=== PATIENT | male | born 1980 | race Caucasian/White ===

== ENCOUNTER 2023-05-09 19:46 | Emergency (ER) | payer BC ==
[2023-05-09] MEDS ORDERED: LIDOCAINE 1% 20 ML MDV ONE (20:15)
[2023-05-09] MEDS ORDERED: TDAP (DIPHTH,PERTUSS(ACELL),TET VAC) 0.5 ML VIAL IMVAC ONE (20:18)
--- NOTE | 2023-05-09 20:26 | ER ---
Nurse's Notes [facility] Name: Taiwo Segundo Age: 42 yrs Sex: Male : 1980 Arrival Date: 05/09/2023 Time: 19:46 Bed 12 Private MD: Diagnosis: Laceration without foreign body of left thumb without damage to nail Presentation: 05/09 20:05 Chief complaint: Patient states: cut left thumb with knife while cooking. Coronavirus cm10 screen: Vaccine status: Patient reports being unvaccinated. Client denies travel out of the [place] in the last 14 days. Ebola Screen: Patient denies travel to an Ebola-affected area in the 21 days before illness onset. No symptoms or risks identified at this time. Initial Sepsis Screen: Does the patient meet any 2 criteria? No. Patient's initial sepsis screen is negative. Does the patient have a suspected source of infection? No. Patient's initial sepsis screen is negative. Risk Assessment: Do you want to hurt yourself or someone else? Patient reports no desire to harm self or others. Onset of symptoms was May 09, 2023. 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 - Social history:: Smoking status: Patient reports the use of cigarette tobacco products, smokes 1.5 packs per day. Screenin:10 [facility] ED Fall Risk Assessment (Adult) History of falling in the last 3 months, mb9 including since admission No falls in past 3 months (0 pts) Confusion or Disorientation No (0 pts) Intoxicated or Sedated No (0 pts) Impaired Gait No (0 pts) Mobility Assist Device Used No (0 pt) Altered Elimination No (0 pt) Score/Fall Risk Level 0 - 2 = Low Risk Oriented to surroundings, Maintained a safe environment, Educated pt \T\ family on fall prevention, incl call for assistance when getting out of bed. Abuse screen: Denies threats or abuse. Nutritional screening: No deficits noted. Tuberculosis screening: No symptoms or risk factors identified. Assessment: 20:11 General: Appears in no apparent distress. Behavior is calm, cooperative. Pain: mb9 Complains of pain in left hand Pain does not radiate. Pain currently is 3 out of 10 on a pain scale. Quality of pain is described as throbbing, Pain began suddenly. Neuro: Cortes Agitation-Sedation Scale (RASS): 0 - Alert and Calm Level of Consciousness is awake, alert, obeys commands, Oriented to person, place, time, situation, Appropriate for age. Cardiovascular: Patient's skin is warm and dry. Respiratory: Airway is patent Respiratory effort is even, unlabored, Respiratory pattern is regular, symmetrical. GI: No signs and/or symptoms were reported involving the gastrointestinal system. : No signs and/or symptoms were reported regarding the genitourinary system. EENT: No signs and/or symptoms were reported regarding the EENT system. Derm: Skin is pink, warm \T\ dry. Musculoskeletal: Range of motion: intact in all extremities. Injury Description: Laceration sustained to LEFT THUMB is clean, 0.5 to 2.5 cm long, bleeding moderately, Vital Signs: 20:05 BP 141 / 88; Pulse 91; Resp 16; Pulse Ox 97% on R/A; Weight 86.18 kg; Height 5 ft. 6 cm10 in. ; 20:05 Body Mass Index 30.67 (86.18 kg, 167.64 cm) cm10 ED Course: 19:51 Patient arrived in ED. mr 19:52 Racheal Marshall FNP-C [facility]. kb 19:52 Darnell Pinto MD is Attending Physician. kb 20:03 Cristal Schulte, RN is Primary Nurse. mb9 20:03 Arm band placed on. mb9 20:06 Triage completed. cm10 20:12 Assist provider with laceration repair on left hand that was 2.5 cm. or less using mb9 sutures. Set up tray. Performed by Racheal RAMOS Dressed with 4X4s, Patient tolerated well. 20:53 Patient did not have IV access during this emergency room visit. mb9 Administered Medications: 20:08 Drug: Lidocaine Infiltration (1 %) 1 vials 5 ml Infiltration once; to bedside Volume: 5 mb9 ml; Route: Infiltration; 20:08 Drug: Tetanus-Diphtheria Toxoid IM Adult 0.5 ml IM once; Provide Vaccine Information mb9 Statement (VIS). 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 Questions and/or gaby9 concerns addressed. VIS edition date: Feb 18, 2021.; No adverse reaction Outcome: 20:26 Discharge ordered by . lawrence 20:53 Discharged to home ambulatory, mb9 20:53 Condition: stable 20:53 Discharge instructions given to patient, Instructed on discharge instructions, follow up and referral plans. Demonstrated understanding of instructions, follow-up care, medications, 20:53 Patient left the ED. mb9 Signatures: Racheal Marshall FNP-C FNP-Cristal Flores, Andrea Reg mr SchulteCristal, RN RN mb9 Diane Rojo RN RN cm10
--- NOTE | 2023-05-09 20:27 | EDPHYS ---
Physician Documentation [facility] Name: Taiwo Segundo Age: 42 yrs Sex: Male : 1980 Arrival Date: 05/09/2023 Time: 19:46 Bed 12 Private MD: ED Physician Darnell Pinto HPI: 05/09 20:24 This 42 yrs old Male presents to ER via Ambulatory with complaints of Thunb laceration. kb 20:24 The patient has a laceration related to: cooking, from a knife, occurred at home, and kb there are no complicating factors. The injury was accidental. The laceration(s) is(are) located on the dorsal aspect of proximal phalanx of left thumb. Onset: The symptoms/episode began/occurred just prior to arrival. Associated signs and symptoms: The patient has no apparent associated signs or symptoms. The patient has not experienced similar symptoms in the past. The patient has not recently seen a physician. Historical: - Allergies: 20:04 Ceclor; cm10 - PMHx: 20:04 Diabetes mellitus; Hypertensive disorder; cm10 - Immunization history:: Adult Immunizations unknown, Last tetanus immunization: unknown. - Social history:: Smoking status: Patient reports the use of cigarette tobacco products, smokes 1.5 packs per day. ROS: 20:23 Constitutional: Negative for fever, chills, and weight loss, kb 20:23 Skin: Positive for laceration(s), of the dorsal aspect of proximal phalanx of left thumb, 20:23 All other systems are negative, Exam: 20:23 Constitutional: This is a well developed, well nourished patient who is awake, alert, kb and in no acute distress. Head/Face: Normocephalic, atraumatic. ENT: Moist Mucous membranes Respiratory: Respirations even and unlabored. No increased work of breathing. Talking in full sentences MS/ Extremity: Pulses equal, no cyanosis. Neurovascular intact. Full, normal range of motion. Neuro: Awake and alert, GCS 15, oriented to person, place, time, and situation. Moves all extremities. Normal gait. 20:23 Skin: injury, laceration(s), the wound is approximately 2 cm(s), of the dorsal aspect of proximal phalanx of left thumb, that can be described as clean, no foreign body, linear, with moderate bleeding, Vital Signs: 20:05 BP 141 / 88; Pulse 91; Resp 16; Pulse Ox 97% on R/A; Weight 86.18 kg; Height 5 ft. 6 cm10 in. ; 20:05 Body Mass Index 30.67 (86.18 kg, 167.64 cm) cm10 Laceration: 20:21 Wound Repair of 2cm ( 0.8in ) subcutaneous laceration to dorsal aspect of proximal kb phalanx of left thumb. Linear shaped.. Distal neuro/vascular/tendon intact. Anesthesia: Local anesthetic administered with 1.5 mls of 1% lidocaine. Wound prep: Extensive cleansing with hibiclenz by me, Wound irrigation with saline by me. Skin closed with 4 4-0 Prolene using simple sutures and sterile technique. Patient tolerated well. MDM: 19:52 Patient medically screened. kb 20:24 Differential diagnosis:. Data reviewed: vital signs, nurses notes. kb 20:24 Differential diagnosis: superficial laceration, tendon injury, vascular injury. kb Counseling: I had a detailed discussion with the patient and/or guardian regarding the historical points, exam findings, and any diagnostic results supporting the discharge/admit diagnosis, the need for outpatient follow up, a family practitioner, to return to the emergency department if symptoms worsen or persist or if there are any questions or concerns that arise at home. 05/09 19:55 Order name: Dressing - Wound; Complete Time: 20:09 kb 05/09 19:55 Order name: Gloves, Sterile; Complete Time: 20:02 kb 05/09 19:55 Order name: Prolene, Sutures; Complete Time: 20:02 kb 05/09 19:55 Order name: Setup Suture Tray; Complete Time: 20:02 kb 05/09 20:22 Order name: Finger Splint; Complete Time: 20:24 kb Administered Medications: 20:08 Drug: Lidocaine Infiltration (1 %) 1 vials 5 ml Infiltration once; to bedside Volume: 5 mb9 ml; Route: Infiltration; 20:08 Drug: Tetanus-Diphtheria Toxoid IM Adult 0.5 ml IM once; Provide Vaccine Information mb9 Statement (VIS). 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 Questions and/or mbCody concerns addressed. VIS edition date: Feb 18, 2021.; No adverse reaction Disposition Summary: 05/09/23 20:26 Discharge Ordered Notes: Location: Home kb Condition: Stable kb Diagnosis - Laceration without foreign body of left thumb without damage to nail kb Followup: kb - With: Emergency Department - When: As needed - Reason: Worsening of condition Followup: kb - With: Private Physician - When: 2 - 3 days - Reason: Recheck today's complaints, Continuance of care, Re-evaluation by your physician Discharge Instructions: - Discharge Summary Sheet kb - Laceration Care, Adult, [id number] kb Forms: - Medication Reconciliation Form kb - Thank You Letter kb - Antibiotic Education kb - Prescription Opioid Use kb - Patient Portal Instructions kb - Leadership Thank You Letter kb Prescriptions: - Bactrim DS 800-160 mg Oral Tablet - take 1 tablet ORAL route every 12 hours for 7 days; 14 tablet; Refills: 0, kb Product Selection Permitted Signatures: Racheal Marshall, Cristal Ho RN RN mb9 Diane Rojo RN RN cm10
[2023-05-10 16:09] VITALS: BP 141/88; O2SAT 97
== END 2023-05-09 20:53 | disposition home or self-care (01) ==
LOC: ER 19:46
PROC: 0HQGXZZ Repair Left Hand Skin, External Approach (ICD-10-PCS; principal; 2023-05-09)
DX: S61.012A Laceration without foreign body of left thumb without damage to nail, initial encounter (principal); F17.210 Nicotine dependence, cigarettes, uncomplicated; Z23 Encounter for immunization; Z88.1 Allergy status to other antibiotic agents
CPT/HCPCS: 12001; J2001

== ENCOUNTER 2023-05-17 12:48 | Emergency (ER) | payer BC ==
[2023-05-17] MEDS ORDERED: DIPHENHYDRAMINE 50 MG/ML VIAL ONE (13:18)
[2023-05-17] MEDS ORDERED: METHYLPREDNISOLONE 125 MG INJ ONE (13:18)
[2023-05-17] MEDS ORDERED: NA CHLORIDE 0.9% 1,000 ML ONE (13:19)
[2023-05-17] MEDS ORDERED: FAMOTIDINE 20 MG/2 ML VIAL IV ONE (13:19)
--- NOTE | 2023-05-17 13:33 | EDPHYS ---
Physician Documentation [facility] Name: Taiwo Segundo Age: 42 yrs Sex: Male : 1980 Arrival Date: 05/17/2023 Time: 12:48 Bed 14 Private MD: ED Physician Shlomo Adams HPI: 05/17 13:02 This 42 yrs old Male presents to ER via Unassigned with complaints of Allergic Reaction.sp3 13:02 42-year-old male presents to the ED with chief complaint "allergic reaction" with sp3 symptoms of throat swelling and urticarial rash on his anterior chest. Patient was recently on Bactrim for infection prophylaxis due to a thumb laceration and on day 5 he had similar symptoms and he went to the ED yesterday and received treatment for allergic reaction consisting of steroids and Pepcid and he was told it was due to Bactrim that induced it. However on my history, patient has also been around a lot of plant material, dust and mold due to his employment. I believe that his allergen is likely not sulfa or Bactrim especially since he has had Bactrim in the past without difficulty. Currently he denies any headache, fever, cough, shortness of breath, chest pain, abdominal pain, vomiting or diarrhea, or any other signs or symptoms on ROS at this time.. Historical: - Allergies: 13:02 Ceclor; cm10 13:02 Bactrim; cm10 - PMHx: 13:02 diabetes mellitus; Hypertensive disorder; Hypercholesterolemia; cm10 - Immunization history:: Adult Immunizations up to date. - Social history:: Smoking status: Patient reports the use of cigarette tobacco products, smokes one pack cigarettes per day. ROS: 13:04 Constitutional: Negative for fever, chills, and weight loss, Eyes: Negative for injury, sp3 pain, redness, and discharge, Neck: Negative for injury, pain, and swelling, Cardiovascular: Negative for chest pain, palpitations, and edema, Respiratory: Negative for shortness of breath, cough, wheezing, and pleuritic chest pain, Abdomen/GI: Negative for abdominal pain, nausea, vomiting, diarrhea, and constipation, Back: Negative for injury and pain, MS/Extremity: Negative for injury and deformity, Neuro: Negative for headache, weakness, numbness, tingling, and seizure, Psych: Negative for depression, anxiety, suicide ideation, homicidal ideation, and hallucinations, Endocrine: Negative for neck swelling, polydipsia, polyuria, polyphagia, and marked weight changes, Hematologic/Lymphatic: Negative for swollen nodes, abnormal bleeding, and unusual bruising, 13:04 All other systems are negative, Exam: 13:04 Constitutional: This is a well developed, well nourished patient who is awake, alert, sp3 and in no acute distress. Head/Face: Normocephalic, atraumatic. Eyes: Pupils equal round and reactive to light, extra-ocular motions intact. Lids and lashes normal. Conjunctiva and sclera are non-icteric and not injected. Cornea within normal limits. Periorbital areas with no swelling, redness, or edema. ENT: Nares patent. No nasal discharge, no septal abnormalities noted. External auditory canals are clear. Oropharynx with no redness, swelling, or masses, exudates, or evidence of obstruction, uvula midline. Mucous membranes moist. Neck: Trachea midline, no thyromegaly or masses palpated, and no cervical lymphadenopathy. Supple, full range of motion without nuchal rigidity, or vertebral point tenderness. No Meningismus. Chest/axilla: Normal chest wall appearance and motion. Nontender with no deformity. No lesions are appreciated. Cardiovascular: Regular rate and rhythm with a normal S1 and S2. No gallops, murmurs, or rubs. Normal PMI, no JVD. No pulse deficits. Respiratory: Lungs have equal breath sounds bilaterally, clear to auscultation and percussion. No rales, rhonchi or wheezes noted. No increased work of breathing, no retractions or nasal flaring. Abdomen/GI: Soft, non-tender, with normal bowel sounds. No distension or tympany. No guarding or rebound. No evidence of tenderness throughout. Back: No spinal tenderness. No costovertebral tenderness. Full range of motion. MS/ Extremity: Pulses equal, no cyanosis. Neurovascular intact. Full, normal range of motion. Neuro: Awake and alert, GCS 15, oriented to person, place, time, and situation. Cranial nerves II-XII grossly intact. Motor strength 5/5 in all extremities. Sensory grossly intact. Cerebellar exam normal. Normal gait. Psych: Awake, alert, with orientation to person, place and time. Behavior, mood, and affect are within normal limits. 13:04 Skin: Patient has mild urticarial rash on his anterior chest without oropharyngeal involvement. Patient is speaking in complete sentences without difficulty and vital signs are normal.. Vital Signs: 13:03 BP 139 / 84; Pulse 95; Resp 16; Temp 98.2; Pulse Ox 100% on R/A; Weight 81.65 kg; cm10 Height 5 ft. 6 in. ; 13:35 BP 125 / 78; Pulse 88; Resp 16 S; Pulse Ox 100% on R/A; kc6 13:03 Body Mass Index 29.05 (81.65 kg, 167.64 cm) cm10 MDM: 12:54 Patient medically screened. sp3 13:05 Data reviewed: vital signs, nurses notes. ED course: 42-year-old male with recurrent sp3 allergic reaction. I do believe this is due to the Bactrim as he was told earlier. I have communicated the need for patient to isolate his exact allergen and have recommended follow-up with an radiology manager as well. We will retreat with Solu-Medrol IV, Benadryl IV and Pepcid IV. He is already on prednisone p.o. Will discharge with epinephrine pen.. 05/17 13:02 Order name: IV Saline Lock; Complete Time: 13:20 sp3 Administered Medications: 13:16 Drug: NS 0.9% IV 1000 ml IV at 1 bolus Per protocol; 1000 mL bolus Route: IV; Rate: 1 kc6 bolus; Site: right antecubital; 13:53 Follow up: Response: No adverse reaction; IV Status: Completed infusion; IV Intake: kc6 1000ml 13:16 Drug: diphenhydrAMINE IVP 12.5 mg IVP once Route: IVP; Site: right antecubital; kc6 13:53 Follow up: Response: No adverse reaction kc6 13:16 Drug: MethylPrednisoLONE IVP 125 mg IVP once Route: IVP; Site: right antecubital; kc6 13:53 Follow up: Response: No adverse reaction kc6 13:16 Drug: Famotidine IVP 20 mg IVP once; dilute with 10 mL 0.9% NaCl; give over 2 minutes kc6 Route: IVP; Site: right antecubital; 13:54 Follow up: Response: No adverse reaction kc6 Disposition Summary: 05/17/23 13:32 Discharge Ordered Notes: Location: Home sp3 Condition: Stable sp3 Diagnosis - Allergic reaction sp3 Followup: sp3 - With: Private Physician - When: Upon discharge from the Emergency Department - Reason: If symptoms return, Continuance of care Discharge Instructions: - Discharge Summary Sheet sp3 - Hives sp3 Forms: - Medication Reconciliation Form sp3 - Thank You Letter sp3 - Antibiotic Education sp3 - Prescription Opioid Use sp3 - Patient Portal Instructions sp3 - Leadership Thank You Letter sp3 Prescriptions: - EpiPen 0.3 mg/0.3 mL Injection Auto-Injector - administer 0.3 milliliter INTRAMUSCULAR route once; 2 milliliter; Refills: 0, sp3 Product Selection Permitted Signatures: Shlomo Adams MD MD sp3 Valerie Jewell, RN RN kc6 Diane Rojo RN RN cm10
--- NOTE | 2023-05-17 13:33 | ER ---
Nurse's Notes [facility] Name: Taiwo Segundo Age: 42 yrs Sex: Male : 1980 Arrival Date: 05/17/2023 Time: 12:48 Bed 14 Private MD: Diagnosis: Allergic reaction Presentation: 05/17 13:03 Chief complaint: Patient states: was seen at [facility] last night for allergic cm10 reaction. Pt states that he was told that he is allergic to Bactrim. Pt states that today he started feeling like his lips were swelling and his throat was feeling tight. Pt in NAD during triage, respirations even and unlabored. Coronavirus screen: Vaccine status: Patient reports being unvaccinated. Client denies travel out of the [place] in the last 14 days. Ebola Screen: Patient denies travel to an Ebola-affected area in the 21 days before illness onset. No symptoms or risks identified at this time. Onset: The symptoms/episode began/occurred gradually. Anaphylaxis evaluation, no signs or symptoms of anaphylaxis were noted. Initial Sepsis Screen: Does the patient meet any 2 criteria? No. Patient's initial sepsis screen is negative. Does the patient have a suspected source of infection? No. Patient's initial sepsis screen is negative. Risk Assessment: Do you want to hurt yourself or someone else? Patient reports no desire to harm self or others. Onset of symptoms was May 17, 2023. 13:03 Method Of Arrival: Ambulatory cm10 13:03 Acuity: COLLIN 3 cm10 Historical: - Allergies: 13:02 Ceclor; cm10 13:02 Bactrim; cm10 - PMHx: 13:02 diabetes mellitus; Hypertensive disorder; Hypercholesterolemia; cm10 - Immunization history:: Adult Immunizations up to date. - Social history:: Smoking status: Patient reports the use of cigarette tobacco products, smokes one pack cigarettes per day. Screenin:55 [facility] ED Fall Risk Assessment (Adult) History of falling in the last 3 months, kc6 including since admission No falls in past 3 months (0 pts) Confusion or Disorientation No (0 pts) Intoxicated or Sedated No (0 pts) Impaired Gait No (0 pts) Mobility Assist Device Used No (0 pt) Altered Elimination No (0 pt) Score/Fall Risk Level 0 - 2 = Low Risk. Abuse screen: Denies threats or abuse. Denies injuries from another. Nutritional screening: No deficits noted. Tuberculosis screening: No symptoms or risk factors identified. Assessment: 13:15 General: Appears in no apparent distress. comfortable, Behavior is calm, cooperative, kc6 appropriate for age. Pain: Denies pain. Neuro: Level of Consciousness is awake, alert, obeys commands, Oriented to person, place, time, situation, Appropriate for age. Cardiovascular: Heart tones S1 S2 present Capillary refill < 3 seconds Chest pain is denied. Respiratory: Airway is patent Trachea midline Respiratory effort is even, unlabored, Respiratory pattern is regular, symmetrical, Breath sounds are clear bilaterally. GI: No signs and/or symptoms were reported involving the gastrointestinal system. : No signs and/or symptoms were reported regarding the genitourinary system. EENT: Throat is clear bilaterally with gag reflex present, Reports difficulty swallowing. Derm: No signs and/or symptoms reported regarding the dermatologic system. Skin is intact, is healthy with good turgor, Skin is pink, warm \T\ dry. Musculoskeletal: No signs and/or symptoms reported regarding the musculoskeletal system. Circulation, motion, and sensation intact. Capillary refill < 3 seconds, Range of motion: intact in all extremities. 13:35 Reassessment: d/c pending IV fluid completion. kc6 Vital Signs: 13:03 BP 139 / 84; Pulse 95; Resp 16; Temp 98.2; Pulse Ox 100% on R/A; Weight 81.65 kg; cm10 Height 5 ft. 6 in. ; 13:35 BP 125 / 78; Pulse 88; Resp 16 S; Pulse Ox 100% on R/A; kc6 13:03 Body Mass Index 29.05 (81.65 kg, 167.64 cm) cm10 ED Course: 12:48 Patient arrived in ED. mg5 12:50 Shlomo Adams MD is Attending Physician. sp3 12:54 Valerie Jewell, EULALIA is Primary Nurse. kc6 12:56 Patient has correct armband on for positive identification. Bed in low position. Call kc6 light in reach. Side rails up X 1. Client placed on continuous cardiac and pulse oximetry monitoring. NIBP monitoring applied. 13:06 Triage completed. cm10 13:06 Arm band placed on. cm10 13:53 No provider procedures requiring assistance completed. IV discontinued, intact, kc6 bleeding controlled, No redness/swelling at site. Pressure dressing applied. Administered Medications: 13:16 Drug: NS 0.9% IV 1000 ml IV at 1 bolus Per protocol; 1000 mL bolus Route: IV; Rate: 1 kc6 bolus; Site: right antecubital; 13:53 Follow up: Response: No adverse reaction; IV Status: Completed infusion; IV Intake: kc6 1000ml 13:16 Drug: diphenhydrAMINE IVP 12.5 mg IVP once Route: IVP; Site: right antecubital; kc6 13:53 Follow up: Response: No adverse reaction kc6 13:16 Drug: MethylPrednisoLONE IVP 125 mg IVP once Route: IVP; Site: right antecubital; kc6 13:53 Follow up: Response: No adverse reaction kc6 13:16 Drug: Famotidine IVP 20 mg IVP once; dilute with 10 mL 0.9% NaCl; give over 2 minutes kc6 Route: IVP; Site: right antecubital; 13:54 Follow up: Response: No adverse reaction kc6 Medication: 13:53 VIS not applicable for this client. kc6 Intake: 13:53 IV: 1000ml; Total: 1000ml. kc6 Outcome: 13:32 Discharge ordered by . sp3 13:53 Discharged to home ambulatory, kc6 13:53 Condition: good 13:53 Discharge instructions given to patient, Instructed on discharge instructions, follow up and referral plans. medication usage, Demonstrated understanding of instructions, follow-up care, medications, Prescriptions given X 1, 13:54 Patient left the ED. kc6 Signatures: Shlomo Adams MD MD sp3 Valerie Jewell RN RN kc6 Diane Rojo RN RN cm10 Noni Romero 5
[2023-05-17 13:59] VITALS: TEMP 98.2; O2SAT 100
[2023-05-17 14:00] VITALS: BP 125/78
== END 2023-05-17 13:54 | disposition home or self-care (01) ==
LOC: ER 12:48
DX: R21 Rash and other nonspecific skin eruption (principal); R22.9 Localized swelling, mass and lump, unspecified; F17.210 Nicotine dependence, cigarettes, uncomplicated; Z88.1 Allergy status to other antibiotic agents
CPT/HCPCS: 96361; 96375; 96374; 99284; J1200; J2930; J7030